=== PATIENT | male | born 1950 | race Caucasian/White ===

== ENCOUNTER 2024-12-05 08:06 | Emergency (ER) | payer MEDICARE, SELFPAY ==
[2024-12-05] VITALS (9 sets, daily range): BP systolic 127–149; BP diastolic 66–98; PULSE 62–74; RESP 13–22; TEMP 36.6; O2SAT 97–99; BMI 26.2
--- NOTE | 2024-12-05 08:09 | DI.RAD.S_ITS ---
PROCEDURE: XR CHEST 1V INDICATIONS: chest pain TECHNIQUE: One view of the chest was acquired. COMPARISON: None. FINDINGS: Surgical changes and devices: None. Lungs and pleura: Lungs are clear. No pleural effusions or pneumothorax. Mediastinum: Mediastinal contours appear normal. Heart size is normal. Bones and chest wall: No suspicious bony lesions. Overlying soft tissues appear unremarkable. IMPRESSION: No acute cardiopulmonary abnormality is seen. Dictated by: Jm Wise M.D. on 12/05/2024 at 9:47 Approved by: Jm Wise M.D. on 12/05/2024 at 9:47
--- NOTE | 2024-12-05 08:09 | EKG_ITS ---
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
--- NOTE | 2024-12-05 08:26 | ED.GENADULT ---
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 Patient works for [employer], worked his usual shift on Tuesday, had Tuesday off, yesterday, on Tuesday finished his work duties and was walking across the parking lot at [employer], felt weak in both legs, no focal weakness to face arm or leg, no focal numbness to face arm or leg, no associated palpitations or shortness of breath or chest pain, no change in vision or inability to speak was known, no double vision, no shaking or seizure activity. He reportedly leaned against an adjacent car to rest in a standing position, apparently seen by another co-worker who contacted some form of administration on the [place] grounds, 911 was called. 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 [place] better, drove himself home. He has had some nasal congestion and muscle aches onset yesterday. No shortness of breath or chest pain. No dysuria or frequency of urination. No abdominal pain, nausea or vomiting. He attempted to go to work but was reportedly locked out from his job, told that he had to go to get medical clearance for return to work. Related Data Previous Rx's Medication Instructions Recorded nirmatrelvir 300 mg (150 mg See Rx Instructions PO .COMPLEX 12/05/24 x2)-ritonavir 100 mg tablet,dose #30 ea pack (Paxlovid) Patient History Social History Smoking Status: Never smoker Smoking Status: Never smoker Exam Narrative Exam Narrative: GENERAL: Well-developed patient, in mild distress. HEAD: Atraumatic. Normocephalic. EYES: Pupils equal round and reactive. Extraocular motions intact. No scleral icterus. No injection or drainage. ENT: Nose without bleeding, purulent drainage. Throat without erythema, tonsillar hypertrophy or exudate. Airway patent. NECK: Trachea midline. Non tender CARDIOVASCULAR: Regular rate and rhythm without murmurs, gallops, or rubs. RESPIRATORY: Clear to auscultation. Breath sounds equal bilaterally. No wheezes, rales, or rhonchi. GASTROINTESTINAL: Abdomen soft, non-tender, nondistended. EXTREMITIES: No edema or joint tenderness. BACK: Nontender without deformity or crepitance. No flank tenderness. NEURO: AOx3. Cranial nerves unremarkable as tested, wears glasses. Motor 5/5 bilateral upper extremities, motor 5/5 bilateral lower extremities. [id number] testing normal right and left side. Intact sensation to light touch face arm leg both sides. Patient was seen by me walking back from Radiology Department, unremarkable gait. SKIN: No rash or erythema of visible areas Initial Vital Signs Initial Vital Signs: Vital Signs Temperature 98 F 12/05/24 08:09 Pulse Rate 64 12/05/24 08:09 Respiratory Rate 20 12/05/24 08:09 Blood Pressure 147/76 H 12/05/24 08:09 Pulse Oximetry 99 12/05/24 08:09 Oxygen Delivery Method Room Air 12/05/24 08:09 Course Orders Ordered: ED Orders 12/05/24 08:09 XR chest 1V Stat EKG-12 Lead Stat 12/05/24 08:21 Complete Blood Count AUTO DIFF Stat Comprehensive Metabolic Panel Stat D Dimer Stat Lipase Stat Troponin & CK Cardiac Panel Stat 12/05/24 08:29 CT head/brain wo con Stat 12/05/24 09:10 Covid-19 + FLU A/B + RSV - PCR Stat Vital Signs Vital signs: Vital Signs - 8 hr 12/05/24 08:09 12/05/24 08:16 12/05/24 08:30 Temperature 98 F Pulse Rate 64 64 74 Respiratory Rate 20 Blood Pressure 147/76 H Pulse Oximetry 99 99 98 Oxygen Delivery Method Room Air 12/05/24 08:31 12/05/24 08:31 12/05/24 09:00 Temperature Pulse Rate 65 64 Respiratory Rate 20 18 Blood Pressure 147/79 H Pulse Oximetry 99 97 Oxygen Delivery Method 12/05/24 09:01 12/05/24 09:01 12/05/24 09:30 Temperature Pulse Rate 66 67 Respiratory Rate 14 13 Blood Pressure 149/66 H Pulse Oximetry 98 99 Oxygen Delivery Method 12/05/24 09:30 Temperature Pulse Rate Respiratory Rate Blood Pressure 127/76 Pulse Oximetry Oxygen Delivery Method Medical Decision Making Lab Data Lab results reviewed: Yes I reviewed the patient's lab results. Lab results narrative: White blood cell count 8600, hemoglobin 14.6, platelets 149,000. Basic metabolic panel unremarkable, glucose 110 noted, liver functions normal. Normal renal function. Normal electrolytes. Troponin negative/unmeasurable. 12/05/24 08:21 12/05/24 08:21 Labs: Lab Results 12/05/24 12/05/24 Range/Units 08:21 09:10 WBC 8.6 (4.5-11.0) X10^3/uL RBC 4.37 L (4.5-5.9) X10^6/uL Hgb 14.6 (13.5-17.5) g/dL Hct 42.0 (41-53) % MCV 96.1 (80-100) fL MCH 33.4 (26-34) PG MCHC 34.8 (30-36) % RDW 13.3 (11.6-14.8) % Plt Count 149 L (150-400) X10^3/uL Neut % (Auto) 67.2 (50-75) % Lymph % (Auto) 15.9 L (25-40) % [place] % (Auto) 16.2 H (3-14) % Eos % (Auto) 0.2 L (2-4) % Baso % (Auto) 0.5 (0-2) % Neut # (Auto) 5800 (7339-7920) /uL Lymph # (Auto) 1400 (8855-1682) /uL [place] # (Auto) 1400 H (0-900) /uL Eos # (Auto) 0 (0-450) /uL Baso # (Auto) 0 (0-100) /uL D-Dimer 318 (<500) ng/ml Sodium 136 L (137-145) mmol/L Potassium 4.1 (3.4-5.1) mmol/L Chloride 107 (98-107) mmol/L Carbon Dioxide 19 L (22-32) mmol/L BUN 15 (9-20) mg/dL Creatinine 0.92 (0.66-1.25) mg/dL Estimated GFR > 60 (>60) mL/min BUN/Creatinine Ratio 16.3 (6-22) Glucose 110 (80-110) mg/dL Calcium 8.9 (8.4-10.2) mg/dL Total Bilirubin 0.7 (0.2-1.3) mg/dL AST 36 (17-59) IU/L ALT 23 (<50) IU/L Alkaline Phosphatase 56 (38-126) U/L Total Creatine Kinase 157 (55-170) U/L Troponin I < 0.012 (0.01-0.034) ng/mL Total Protein 7.4 (6.3-8.2) g/dL Albumin 4.3 (3.5-5.0) g/dL Globulin 3.1 (1.7-4.1) g/dL Albumin/Globulin Ratio 1.4 (1.0-2.8) Lipase 110 (23-300) U/L SARS-CoV-2 (PCR) Positive H (Negative) Influenza A (RT-PCR) Flu a negative (NEGATIVE) Influenza B (RT-PCR) Flu b negative (NEGATIVE) RSV (PCR) Negative (Negative) Imaging Data CT scan - head: Radiologist's Impression: [address] [address] [address] Scan Report Signed Patient: Zaid Shore MR#: [id number] : 1950 Acct:[id number] Age/Sex: 74 / M Date of Service: 12/05/24 Loc: ED Accession Number: [id number] Procedure: CT head/brain wo con Ordering Provider: Myron Pike MD PROCEDURE: CT HEAD/BRAIN WO CON INDICATIONS: syncope TECHNIQUE: Noncontrast 4.5 mm thick angled axial sections acquired from the foramen magnum to the vertex, with coronal and sagittal reformats. For radiation dose reduction, the following was used: automated exposure control, adjustment of mA and/or kV according to patient size. COMPARISON: None. FINDINGS: Image quality: Diagnostic. CSF spaces: Basal cisterns are patent. No extra-axial fluid collections. The ventricles are symmetric in size and shape. 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 There is cerebral volume loss for age, with resultant ventricular and sulcal prominence. There are periventricular and deep white matter chronic small vessel ischemic changes. There is intracranial internal carotid artery atherosclerosis. Skull and face: Calvarium and visualized facial bones appear intact, without suspicious lesions. Sinuses: Visualized sinuses and mastoids are clear. IMPRESSION: No acute intracranial pathology. Dictated by: Jm Wise M.D. on 12/05/2024 at 8:43 Approved by: Jm Wise M.D. on 12/05/2024 at 8:46 ECG Data Attestation: I personally reviewed and interpreted this ECG as follows: Interpretation: Normal sinus rhythm with left bundle branch block. History of left bundle branch block per patient. IL 182, QRS 160, QTC 461. 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 EMS apparently went to the scene and there was no transport. He was locked out of his job this morning attempting to go to work and is seeking medical clearance. He has nasal congestion and muscle aching without cough onset yesterday. No focal neuro findings. Unclear etiology of his bilateral leg weakness episode yesterday, was triaged as possible near syncopal episode. CT head ordered, EKG, chest x-ray, labs pending. Recent muscle aches and nasal congestion, will add COVID/flu/RSV swab testing. EKG shows normal sinus rhythm with left bundle branch block pattern, apparently he has a known left bundle branch block. CT head no acute changes, see radiology report. Lab studies: White blood cell count 8600, hemoglobin 14.6, platelets [id number]. Basic metabolic panel unremarkable, glucose 110 noted, liver functions normal. Normal renal function. Normal electrolytes. Troponin negative/unmeasurable. D-dimer not elevated. Covid/flu swab results pending. COVID positive, influenza and RSV negative. No oxygen requirement, no respiratory distress. Chest x-ray negative. See radiology report. Patient informed about positive COVID swab results. Likely the cause of his generalized weakness yesterday, in context of new muscle aches and nasal congestion. We discussed antiviral treatment, he has had COVID initial vaccination Moderna series, no recent booster. Age greater than 65 risk factor noted. He is interested in trying the antiviral treatment. Paxlovid prescription sent to his requested pharmacy. Advised to take antiviral treatment as soon as possible for greatest maximal benefit. Advised to use masks in public. Consider self isolation for the next 5 days. 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 He has appointment 12/13/2024 with his regular provider in [place], advised to keep that appointment for now. Return precautions discussed. Discharged home. Discharge Plan Departure Patient Disposition: Home Clinical Impression: COVID-19, Generalized weakness Activity Restrictions/Additional Instructions: Weakness yesterday after work prompting a colleague to call 911, ambulance evaluation, no transport at this time, muscle aches and nasal congestion since then. Triage concern for possible near syncopal episode yesterday. CT head study was sent, no acute changes noted. Serum lab studies sent and were unremarkable. EKG showed normal sinus rhythm. COVID/RSV/influenza swab was sent, which was positive for COVID illness. This might be why you had generalized weakness and your nasal congestion. Unlikely need for follow up Cardiology and/or Neurology for weakness symptoms yesterday, as it likely was due to COVID illness. 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 It would be prudent to not be working and exposing persons to COVID illness for the next 5 days, wear mask in public around other people if you can tolerate wearing a mask. We talked about antiviral medications Paxlovid, against COVID virus, as you are in a risk group of age greater than 65 although you have had Moderna vaccination during the pandemic, no recent booster. You were interested in trying the Paxlovid antiviral medication, sent to your pharmacy, take doses as soon as possible for greatest benefit. There is usually 1 dose twice daily for 5 day course. A dose is comprised of 2 different antivirals that are taken at the same time. Take medications as directed. You reported scheduled follow up appointment with your regular doctor on December 13. Keep this appointment for now. Return to this/nearest emergency department for any change worsening symptoms or any concerns prior Prescriptions: New Paxlovid 300 mg (150 mg x 2)-100 mg tablets,dose pack See Rx Instructions .ROUTE .COMPLEX Qty: 30 0RF Rx Instructions: take TWO 150 mg tablets of nirmatrelvir with ONE 100 mg tablet of ritonavir twice daily for 5 days Stand Alone Forms: Patient Portal/API/Survey
--- NOTE | 2024-12-05 08:29 | DI.CT.S_ITS ---
PROCEDURE: CT HEAD/BRAIN WO CON INDICATIONS: syncope TECHNIQUE: Noncontrast 4.5 mm thick angled axial sections acquired from the foramen magnum to the vertex, with coronal and sagittal reformats. For radiation dose reduction, the following was used: automated exposure control, adjustment of mA and/or kV according to patient size. COMPARISON: None. FINDINGS: Image quality: Diagnostic. CSF spaces: Basal cisterns are patent. No extra-axial fluid collections. The ventricles are symmetric in size and shape. 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 There is cerebral volume loss for age, with resultant ventricular and sulcal prominence. There are periventricular and deep white matter chronic small vessel ischemic changes. There is intracranial internal carotid artery atherosclerosis. Skull and face: Calvarium and visualized facial bones appear intact, without suspicious lesions. Sinuses: Visualized sinuses and mastoids are clear. IMPRESSION: No acute intracranial pathology. Dictated by: Jm Wise M.D. on 12/05/2024 at 8:43 Approved by: Jm Wise M.D. on 12/05/2024 at 8:46
[2024-12-05 08:34] LABS: Add Manual Diff / Slide Review NO; Basophils Absolute Auto 0 /uL (0-100); Basophils Percent Auto 0.5 % (0-2); Eosinophils Absolute Auto 0 /uL (0-450); Eosinophils Percent Auto 0.2 % (2-4); Hemoglobin 14.6 g/dL (13.5-17.5); Lymphocytes Absolute Auto 1400 /uL (1100-4500); Lymphocytes Percent Auto 15.9 % (25-40); Mean Corpuscular HGB Conc 34.8 % (30-36); Mean Corpuscular Hemoglobin 33.4 PG (26-34); Mean Corpuscular Volume 96.1 fL (80-100); Monocytes Absolute Auto 1400 /uL (0-900); Monocytes Percent Auto 16.2 % (3-14); Neutrophils Absolute Auto 5800 /uL (1500-7000); Neutrophils Percent Auto 67.2 % (50-75); Platelet Count 149 X10^3/uL (150-400); Red Blood Cell Count 4.37 X10^6/uL (4.5-5.9); Red Cell Distribution Width 13.3 % (11.6-14.8); White Blood Cell Count 8.6 X10^3/uL (4.5-11.0)
[2024-12-05 08:40] LABS: D Dimer 318 ng/ml (<500)
[2024-12-05 08:43] LABS: Alanine Aminotransferase 23 IU/L (<50); Albumin 4.3 g/dL (3.5-5.0); Albumin Globulin Ratio 1.4 (1.0-2.8); Alkaline Phosphatase 56 U/L (38-126); Aspartate Aminotransferase 36 IU/L (17-59); BUN Creatinine Ratio 16.3 (6-22); Bilirubin Total 0.7 mg/dL (0.2-1.3); Blood Urea Nitrogen 15 mg/dL (9-20); Calcium 8.9 mg/dL (8.4-10.2); Carbon Dioxide 19 mmol/L (22-32); Chloride 107 mmol/L (98-107); Creatine Kinase 157 U/L (55-170); Estimated Glomerular Filt Rate > 60 mL/min (>60); Globulin 3.1 g/dL (1.7-4.1); Glucose 110 mg/dL (80-110); HEMOLYSIS < 15 (0-50); Lipase 110 U/L (23-300); Potassium 4.1 mmol/L (3.4-5.1); Sodium 136 mmol/L (137-145); Total Protein 7.4 g/dL (6.3-8.2)
[2024-12-05 08:55] LABS: Troponin I < 0.012 ng/mL (0.01-0.034)
--- NOTE | 2024-12-05 09:16 | PC.NURSE ---
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 Pt states EMS saw him and he went home. Pt states today he tried to go back to work and work would not let him in until he was cleared by a MD. Pt denies dizziness; states the only medication he takes is for hypothyroidism. Denies CP or sob. Denies any pains. Pt states he is usually pretty active. Pt ambulates w/o difficulty. GCS 15. Respirations regular and unlabored.
--- NOTE | 2024-12-05 09:31 | PC.NURSE ---
Pt awake and alert, denies chest pain.
[2024-12-05 10:04] LABS: COVID-19 CEPHEID 4-PLEX PCR POSITIVE (Negative); Influenza A - CEPHEID Flu A NEGATIVE (NEGATIVE); Influenza B - CEPHEID Flu B NEGATIVE (NEGATIVE); Respiratory Syncytial Virus Negative (Negative)
== END 2024-12-05 10:41 | disposition home or self-care (01) ==
PROVIDERS: Emergency Provider Emergency Medicine
DX: U07.1 COVID-19 (principal); R53.1 Weakness; R42 Dizziness and giddiness; I44.7 Left bundle-branch block, unspecified; R07.9 Chest pain, unspecified
CPT/HCPCS: 0241U; 70450; 71045; 80053; 82550; 83690; 84484; 85025; 85379; 93005; 99283; 99284